=== PATIENT | female | born 1960 | race Caucasian/White ===

== ENCOUNTER → 2018-02-20 07:30 | Outpatient (CLI) | payer OTHER, SELFPAY ==
[2018-02-20 08:22] LABS: Absolute Lymphocyte Count 1.59 X10^3/ul (0.83-4.51); Absolute Neutrophil Count 1.8 X10^3/uL (2.0-7.7); Basophil# 0.04 X10^3/uL; Eosinophil# 0.07 X10^3/uL; Eosinophils% 1.8 % (0-5); Hematocrit 39.1 % (37-47); Hemoglobin 12.4 g/dl (12.0-15.0); Lymphocyte # 1.59 X10^3/ul (4.0); Lymphocyte % 40.2 % (19-41); Mean Corp Hgb Conc 31.7 g/gl (32-36); Mean Corpuscular Hgb 30.8 pg (27.0-32.0); Mean Platelet Vol. 11.2 fl (6.2-12.0); Monocyte% 12.6 % (0-10); Neutrophil # 1.75 X10^3/uL (2.7-7.7); Neutrophil % 44.1 % (47-70); Platelet Count 210 K/mm3 (150-450); RBC Distribution Width CV 13.3 % (11.6-14.6); RBC Distribution Width SD 46.5 fl (35.1-43.9); Red Blood Count 4.03 M/mm3 (4.2-5.4)
[2018-02-20 08:29] LABS: POSITIVE COUNT NO; POSITIVE DIFFERENTIAL NO; POSITIVE MORPHOLOGY NO
[2018-02-20 08:34] LABS: Color, Urine Yellow (Yellow); Glucose, Dipstick Normal (Normal); Ketone-Dipstick Negative (Negative); Leukocyte Esterase-Dipstick Negative /ul (Negative); Nitrite-Dipstick Negative (Negative); Occult Blood-Urine Negative /ul (Negative); Protein-Dipstick 15 mg/dl (Negative); Urine Bilirubin Dipstick Negative (Negative); Urine Clarity Clear (Clear); Urine Urobilinogen Normal (Normal)
[2018-02-20 09:14] LABS: Cholesterol 235 mg/dL (200); High Density Lipoprotein 110 mg/dL; Triglycerides 63 mg/dL; Very Low Density Lipoprotein 13 mg/dL (5-40)
== END ==
PROVIDERS: Family Provider Family Medicine; PCP Family Medicine; Visit Provider Family Medicine
DX: Z00.00 Encounter for general adult medical examination without abnormal findings (principal); R07.9 Chest pain, unspecified; Z13.89 Encounter for screening for other disorder
CPT/HCPCS: 36415; 80061; 81002; 85025

== ENCOUNTER → 2018-05-18 13:48 | Outpatient (CLI) | payer OTHER, SELFPAY ==
--- NOTE | 2018-05-18 13:51 | VDLE_ITS ---
Reason For Study: LEG PAIN AND SWELLING RIGHT LEFT CFV is compressible, spontaneous, phasic, CFV is compressible, spontaneous, phasic, competent and demonstrates normal competent, and demonstrates normal augmentation. augmentation. FV is compressible, spontaneous, phasic, FV is compressible, spontaneous, phasic, competent and demonstrates normal competent and demonstrates normal augmentation. augmentation. POP V is compressible, spontaneous, phasic, POP V is compressible, spontaneous, phasic, competent and demonstrates normal competent and demonstrates normal augmentation. augmentation. T/P Trunk is compressible. T/P Trunk is compressible. PTV is compressible. PTV is compressible. RT PerV is compressible. LT PerV is compressible. SFJ is INCOMPETENT with reflux greater SFJ is competent than .5 sec GSV is INCOMPETENT with reflux greater GSV is INCOMPETENT with reflux greater than .5 sec and diameter of .29 x .29 cm than .5 sec and diameter of .36 x .36 cm SSV is INCOMPETEDNT with reflux greater SSV is INCOMPETENT with reflux greater than .5 sec and diameter of .40 x .40 cm. than .5 sec and diameter of .60 x .65 cm. Procedure Exam performed in department. <> Interpretation Summary 1. Bilateral no DVT. 2. RightGSV 3.6mm and reflux and LSV 6.5mm and relfux 3. Left GSV 3mm and relfux and LSV 4mm and reflux. Ordering Physician: Tommy Liu Referring Physician: Tommy Liu Performed By: Carolina Solano RVT
== END ==
PROVIDERS: Family Provider Family Medicine; PCP Family Medicine; Referring Provider Surgery Vascular Surgery; Visit Provider Surgery Vascular Surgery
DX: I83.93 Asymptomatic varicose veins of bilateral lower extremities (principal); I87.2 Venous insufficiency (chronic) (peripheral); M79.89 Other specified soft tissue disorders; M79.609 Pain in unspecified limb
CPT/HCPCS: 93970

== ENCOUNTER → 2018-10-07 08:46 | Outpatient (CLI) | payer OTHER, SELFPAY ==
--- NOTE | 2018-10-07 08:49 | VDLE_ITS ---
Reason For Study: S/P LLEA Procedure LEFT Exam performed in department. GSV is normal. CFV is compressible, spontaneous, phasic, competent, and demonstrates normal augmentation. FV is compressible, spontaneous, phasic, competent and demonstrates normal augmentation. POP V is compressible, spontaneous, phasic, competent and demonstrates normal augmentation. T/P Trunk is compressible. PTV is compressible. LT PerV is compressible. Left SSV starting just distal to T/P Trunk is noncompressible extending throughout vessel to just above ankle. Findings consistent with recent SSV ablation. Interpretation Summary 1. Left leg no dvt 2. Successfule left lsv evlt. Ordering Physician: Tommy Liu Referring Physician: Tommy Liu Performed By: Madison Rubi, TALYA, RVT
== END ==
PROVIDERS: Family Provider Family Medicine; PCP Family Medicine; Referring Provider Surgery Vascular Surgery; Visit Provider Surgery Vascular Surgery
DX: I83.93 Asymptomatic varicose veins of bilateral lower extremities (principal); I87.2 Venous insufficiency (chronic) (peripheral); M79.89 Other specified soft tissue disorders; M79.609 Pain in unspecified limb; I34.1 Nonrheumatic mitral (valve) prolapse; Z87.891 Personal history of nicotine dependence
CPT/HCPCS: 93971

== ENCOUNTER 2019-07-23 10:00 | Outpatient (RCR) | payer OTHER, SELFPAY ==
--- NOTE | 2019-06-15 17:06 | HP.PTEVAL ---
Patient's Visit Information MELVI MALAVE is a 59 year old F referred to Physical Therapy by Ac Rice MD with a diagnosis of L shoulder pain. Date of Evaluation: 06/15/19 Physical Therapist: Augustine Dumas PT, ATC - Visit Plan Frequency: 2x /Week Duration: 2-4 Weeks Plan: L shoulder strengthening (rotator cuff), scap stab ex's, UBE, and HEP - Subjective Findings: Pt reports her L shoulder has been sore for 1 month. 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 Pt reports she is very active and her job is very active, and notes she has a hard time performing some of her tasks because of pain. Pt reports reaching overhead and pulling something towards her is what causes her the most pain. Pt is R hand dominant. Pt reports sleep difficulty secondary to pain. Pt reports no tingling or numbness in L UE. Pt reports most of her pain is located along the distributtion of the supraspinatus. 7/10 pain at rest, 9/10 pain at worst. Pt has had no diagnostic tests at this time. - Pain L shoudler Pain Intensity (Out of 10): 7 Pain Intensity Range: 9 - Objective Neuro: B UE sensation is WNL to lgiht touch. B bicepital reflex= 2/3. Palpation: Pt is sore in upper trap and supraspinatus regions. No obvious deformity present at this time. ROM: R shoulder flex= 180, abd= 160, ER= 90, IR WNL; L shoulder flex= 110, abd= 110, ER= 55, IR minimally limited. MMT: L shoulder flex= 4/5, abd= 5/5, ER= 4-/5, IR 4-/5. R shoulder 5/5 throughout. Special tests: pos empty can test - Goals Goal 1:: Decrease L shoulder pain x 50% to aid with sleep Goal Time Frame: 2-4 Weeks Goal 2:: Increase L shoulder strength x 1 grade to aid with IADL's Goal Time Frame: 2-4 Weeks Goal 3:: Increase L shoulder flex and abd ROM x 20 degrees to aid with overhead lifting Goal Time Frame: 2-4 Weeks Goal 4:: I with HEP Goal Time Frame: 2-4 Weeks - Rehabilitation Potential Physical Therapy Diagnosis: L shoulder pain, limited ROM, and weakness secondary to L shoulder rot cuff syndrome Rehabilitation Potential: Good - Anticipated Interventions Patient/Client Instruction: Educate patient on: Condition, Plan of Care For the Purpose of:: To improve self management Therapeutic Exercise to Include: Strength training, Endurance training, Flexibilty training, Passive ROM, Active ROM, Scapular Strength/Stabilization For the Purpose of:: To decrease pain, To increase ROM, To improve muscle performance and motor function Cryotherapy (ice pack, ice massage): Yes For the Purpose of:: To decrease pain Thank you for the opportunity to evaluate your patient. For Medicare and Medicare HMO plans, please review the plan of care and approve it. It will need to be FAXED BACK to us at [phone] for Medicare purposes. For Medicare only, by signing this I certify the plan of care. Please let me know if there are questions or concerns regarding this plan of care. Physician Signature: Date:
--- NOTE | 2019-10-06 12:28 | HP.PT.NRP ---
MELVI MALAVE was seen in my office for initial evaluation on 06/15/19. The following Plan of Care was established for this patient: Initial Frequency: 2x /Week Initial Duration: 2-4 Weeks Patient/Client Instruction: Educate patient on: Condition, Plan of Care For the Purpose of:: To improve self management Therapeutic Exercise to Include: Strength training, Endurance training, Flexibilty training, Passive ROM, Active ROM, Scapular Strength/Stabilization For the Purpose of:: To decrease pain, To increase ROM, To improve muscle performance and motor function Cryotherapy (ice pack, ice massage): Yes For the Purpose of:: To decrease pain This patient was last seen in our office . Pertinent comments regarding their Physical therapy will appear below: Pt was treated for 9 PT visits for L shoulder pain through the date of 07/23/2019. Pt has not returned through todays date and is discontinued at this time At this point I will be discontinuing this patient from physical therapy. I would be happy to see this patient again in the future if found appropriate by the physician. Thank you! Augustine Dumas, PT, ATC
== END 2019-07-23 19:00 | disposition home or self-care (01) ==
LOC: PT 10:00
PROVIDERS: Family Provider Family Medicine; PCP Family Medicine; Referring Provider Family Medicine; Visit Provider Family Medicine
DX: M25.512 Pain in left shoulder (principal); M25.561 Pain in right knee
CPT/HCPCS: 97110; 97161; 97530

== ENCOUNTER → 2021-03-30 13:16 | Outpatient (CLI) | payer OTHER, SELFPAY ==
--- NOTE | 2021-03-30 13:22 | CT_ITS ---
STUDY: CT PELVIS WITH CONTRAST REASON FOR EXAM: Female, 60 years old. Lower back pain. RADIATION DOSAGE (If Supplied By Facility): CTDIvol = ( 27.80 ) mGy, DLP = ( 975.55 ) mGycm TECHNIQUE: Transaxial imaging of the pelvis was performed without oral contrast. 100 CC ISOVUE 370 was administered intravenously. Individualized dose optimization techniques were used for this CT. COMPARISON: None. FINDINGS: Normal urinary bladder. The patient is status post hysterectomy. Normal visualized small intestine. Normal visualized colon. There is no pelvic fluid. There is no pelvic lymphadenopathy or mass lesion. Normal visualized pelvic arteries. Normal abdominal wall. There are mild degenerative changes of the visualized lumbar spine. CT/Pelvis WITH IV Contrast IMPRESSION: Mild degree of degenerative changes of the lumbar spine. Electronically Signed: Kenyon Donald MD at 14:32 EDT , Service support ,
[2021-03-30 14:11] LABS: CREATININE FINGERSTICK 0.8 mg/dL (0.55-1.02); EGFR FINGERSTICK > 60.0000 mL/min (>60)
== END ==
PROVIDERS: PCP Family Medicine; Referring Provider Family Medicine; Visit Provider Family Medicine
DX: R10.2 Pelvic and perineal pain (principal)
CPT/HCPCS: 72193; Q9967

== ENCOUNTER 2021-04-20 13:00 | Outpatient (RCR) | payer OTHER, SELFPAY ==
--- NOTE | 2021-03-16 13:30 | HP.PTEVAL ---
Patient's Visit Information MELVI MALAVE is a 60 year old F referred to Physical Therapy by Dr. Ac Rice MD with a diagnosis of LBP and pelvic pain. Date of Evaluation: 03/16/21 Physical Therapist: JEANNETTE Bernstein - Visit Plan Frequency: 2x /Week Duration: 6 Weeks Plan: 2X/ week for 6 weeks for neutral spine core stability, it band stretches, piriformis stretches, LE hip strengthening with HEP. HEP: Supine piriformis stretch and IT band stretch, PT and PT with small range leg lift - Subjective About 1 month ago pt feel down basement stairs. Her tailbone was bad and a couple weeks later she started with painful LBP and the fw motion putting weight on foot and could not take a full stride. She is going to have a CATSCAN for he S1 joint. She has a lot of anti inflamm meds. She can bend and it is the straight fw walking. She was told that her x-rays shows that there is an abnormality with the S1 and she needs to have a Catscan. Pt points that her pain is in her L SI area and buttock. Sometimes she can feel it passed her buttock but it is not the jamming type pain with walking. Her pain is worse in the morning. She stands at work and is ok but it is advancing her L leg forward etc. She has no Nubness and no tingling. - Pain L sided back pain Pain Intensity (Out of 10): 3 Comment: 01/27 with movement - Objective Gait: walks with short guarded stride and slow kaitlynn. Trunk AROM: flexion 100%, ext 50%, SB B 75%, Rot B 75%. LE MMT: B hip flex R 4-/5 (increase in pain on the L side of LB) and L 4-/5, B knee ext 4/5, B knee flex 4/5, R hip ext 4-/5 and L 3+/5 with in crease pain on the L side of Spine, R hip abd 4/5 and L 4-/5. Pt is able to stand on L and R and SLB X 30 sec without increase pain. Tight piriformis on with pain on the L and Tight L IT band. Palpation: tender over the L pififormis muscle belly. Instructed pt in how to sit with a towel lumbar roll - Balance/Special Test Scores Oswestry Low Back Score: 14 - Goals Goal 1:: I HEP Goal Time Frame: 4-6 Weeks Goal 2:: Be able to walk with normal stride length without pain and antalgic gait Goal Time Frame: 4-6 Weeks Goal 3:: Decrease L leg pain with work and ADL's Goal Time Frame: 4-6 Weeks Goal 4:: Increase core stability and LE strength (at time of eval: LE MMT: B hip flex R 4-/5 (increase in pain on the L side of LB) and L 4-/5, B knee ext 4/5, B knee flex 4/5, R hip ext 4-/5 and L 3+/5 with in crease pain on the L side of Spine, R hip abd 4/5 and L 4-/5). Goal Time Frame: 6-8 Weeks - Rehabilitation Potential Rehabilitation Potential: Good - Anticipated Interventions Patient/Client Instruction: Educate patient on: Condition, Plan of Care For the Purpose of:: To decrease pain, To increase ROM, To improve nutrient delivery to tissue, To improve muscle performance and motor function, To improve ability to perform ADL's, To increase tolerance to activity/condition/position, To decrease level of supervision to perform tasks, To improve ability of physical actions for home/community/work/leisure, To improve gait and locomotor functions, To improve health of tissue, To decrease soft tissue restriction, To increase flexibility/ROM Therapeutic Exercise to Include: Strength training, Postural training, Flexibilty training, Gait and locomotor training, Neuromotor development, Passive ROM, Active ROM, Dynamic Lumbar Stabilization For the Purpose of:: To decrease pain, To increase ROM, To improve nutrient delivery to tissue, To improve muscle performance and motor function, To improve ability to perform ADL's, To increase tolerance to activity/condition/position, To improve performance and independence with ADL's, To decrease level of supervision to perform tasks, To improve ability of physical actions for home/community/work/leisure, To improve gait and locomotor functions, To improve health of tissue, To decrease soft tissue restriction, To increase flexibility/ROM Functional Training to Include: Gait training For the Purpose of:: To improve gait and locomotor functions, To improve safety with gait Manual Therapy Techniques to Include: Mobilization, Passive ROM, Functional dry needling, Soft tissue mobilization For the Purpose of:: To decrease pain, To increase ROM, To improve nutrient delivery to tissue, To improve muscle performance and motor function, To improve ability to perform ADL's Thank you for the opportunity to evaluate your patient. For Medicare and Medicare HMO plans, please review the plan of care and approve it. It will need to be FAXED BACK to us at [phone] for Medicare purposes. For Medicare only, by signing this I certify the plan of care. Please let me know if there are questions or concerns regarding this plan of care. Physician Signature: Date:
--- NOTE | 2021-04-20 13:32 | HP.PTDCSUM ---
It has been my pleasure to treat MELVI MALAVE referred by Dr. Ac Rice MD, with the diagnosis of LBP and pelvic pain for a total of 9 visit(s). Discharge Date: 04/20/21 Please see the following information for a summary of their discharge status. Subjective: Pt reports that she feel that she has enough exercises that she will continue L sided back pain Pain Intensity (Out of 10): 1 % Improvement: 85 Objective/Function: LE MMT: B hip flex, abd 4/5 and hip ext 4/5. Pt walks with normal gait pattern Goal 1:: I HEP Goal Progress: Goal Met Goal 2:: Be able to walk with normal stride length without pain and antalgic gait Goal 3:: Decrease L leg pain with work and ADL's Goal Progress: Goal Met Goal 4:: Increase core stability and LE strength (at time of eval: LE MMT: B hip flex R 4-/5 (increase in pain on the L side of LB) and L 4-/5, B knee ext 4/5, B knee flex 4/5, R hip ext 4-/5 and L 3+/5 with in crease pain on the L side of Spine, R hip abd 4/5 and L 4-/5). Plan: DC PT to HEP Discharge Comments: DC PT to [facility] If there are questions or concerns regarding this patient's physical therapy, please feel free to call me at [phone]. Thank you for the referral of this patient. Sincerely, Enriqueta Easley, MPT Balance/Gait/Functional tests - Balance/Special Test Scores Oswestry Low Back Score: 1
== END 2021-04-20 19:00 | disposition home or self-care (01) ==
LOC: PT 13:00
PROVIDERS: PCP Family Medicine; Referring Provider Family Medicine; Visit Provider Family Medicine
DX: M54.5 Low back pain (principal); R10.2 Pelvic and perineal pain
CPT/HCPCS: 97110; 97161; 97530

== ENCOUNTER → 2024-08-18 | Outpatient (CLI) | payer MEDICARE, BC, SELFPAY ==
[2024-08-18 09:48] LABS: Anion Gap 7 (5-15); BUN 13 mg/dL (7-18); BUN/Creat Ratio 15.9 RATIO (10-20); Calcium,Total 8.9 mg/dL (8.5-10.1); Chloride 100 mmol/L (98-107); Creatinine, Serum 0.82 mg/dL (0.55-1.02); EST Glomerular Filtration Rate 75 mL/min (>60); Est Glom Filt Rate - Afr Amer 90 mL/min (>60); Glucose 96 mg/dL (74-106); Potassium 4.3 mmol/L (3.5-5.1); Sodium Level 136 mmol/L (136-145)
== END | disposition home or self-care (01) ==
LOC: LAB 08:40
PROVIDERS: PCP Family Medicine; Referring Provider Internal Medicine Cardiovascular Disease; Visit Provider Internal Medicine Cardiovascular Disease
DX: I10 Essential (primary) hypertension (principal)
CPT/HCPCS: 36415; 80048

== ENCOUNTER 2024-09-04 11:57 | Emergency (ER) | payer MEDICARE, BC, SELFPAY ==
[2024-09-04 11:58] VITALS: BP 123/64; PULSE 73; RESP 16; TEMP 36.9; O2SAT 99; BMI 28.4
--- NOTE | 2024-09-04 12:10 | VDLE_ITS ---
Reason For Study Reason For Study: Pain RLE RIGHT LEFT GSV is normal. CFV is compressible, spontaneous, phasic, competent, CFV is compressible, spontaneous, phasic, competent and demonstrates normal augmentation. and demonstrates normal augmentation. FV is compressible, spontaneous, phasic, competent and demonstrates normal augmentation. T/P Trunk is compressible. PTV is compressible. RT PerV is compressible. Rt PopV is partially compressible consistent with acute DVT; thrombus extends into the Popliteal V from the Rt SSV Rt SoleusV is DILATED and NON COMPRESSIBLE consistent with acute DVT Rt SSV is DILATED and NON COMPRESSIBLE consistent with acute SVT. VL/Venous Duplex US, Unilateral Interpretation Summary Acute deep vein thrombosis noted in the right popliteal vein, soleus vein. Acute superficial vein thrombosis noted in the right small saphenous vein Ordering Physician: Les Coleman Referring Physician: Ac Rice Performed By: Morena Cramer RDCS, RVT
--- NOTE | 2024-09-04 12:11 | EX.ED.DYSGE1 ---
HPI <MEGHA Angel - Last Filed: 09/04/24 13:05> History of Present Illness Chief Complaint: Lower Extremity Injury Narrative Narrative: Patient is a 64-year-old female with history of hypertension, does have history of varicose veins with some vein stripping presenting to the [facility] apartment with 3 days of pain to the right calf. Patient states she noticed some swelling, some pain on palpation. She is leaving for vacation tomorrow and she is concerned she might have a blood clot. She was brought over by urgent care. Patient denies any recent surgery, recent travel, or history of blood clots in the legs or lungs. PFS <MEGHA Angel - Last Filed: 09/04/24 13:05> [facility] Medical History Hypertension Chest pain Mitral valve prolapse Leiomyoma of uterus Excessive or frequent menstruation Home Medications ?Medication ?Instructions ?Recorded ?Last Taken ?Type lisinopril 20 mg tablet 20 mg PO QDAY #90 tabs 07/29/24 Unknown Rx carvedilol 12.5 mg tablet 12.5 mg PO BID #180 tabs 08/18/24 Unknown Rx apixaban 5 mg (74 tabs) tablets in See Rx Instructions PO .COMPLEX 09/04/24 Unknown Rx a dose pack (Eliquis DVT-PE Treat #74 tabs 30D Start) Allergy/AdvReac Type Severity Reaction Status Date / Time Penicillins Allergy Hives Verified 09/04/24 12:00 Family History Mother Glaucoma Heart disease Father Hypertension Cancer Sister Breast cancer Tachycardia Surgical History History of total abdominal hysterectomy and bilateral salpingo-oophorectomy History of loop electrical excision procedure (LEEP) History of right knee surgery History of delivery Social History Smoking Status: Former smoker alcohol intake: current substance use type: does not use caffeine: Yes ROS <MEGHA Angel - Last Filed: 09/04/24 13:05> ROS ED ROS Narrative Constitutional: Negative for fever, chills, weight loss, weakness Eyes: Negative for vision loss, vision change, double vision ENT: Negative for any sore throat, ear pain, congestion Cardiovascular: Negative for any chest pain, tightness, palpitations Respiratory: Negative for any cough, sputum production, hemoptysis, dyspnea, dyspnea on exertion, orthopnea Gastrointestinal: Negative for any abdominal pain, nausea, vomiting, diarrhea, constipation, blood in stool, blood in vomit : Negative for any urinary frequency, dysuria, retention, blood in urine Muscle skeletal: Negative for any neck pain, back pain. Positive pain to the right calf Neurological: Negative for any headache, syncope, dizziness Skin: Negative for any rashes, itching, abrasions, lacerations Psychiatric: Negative for any depression, anxiety, stress, suicidal ideation, homicidal ideation Hematologic: Negative for any excessive bruising, easy bleeding EXAM <MEGHA Angel - Last Filed: 09/04/24 13:05> Physical Exam Narrative Exam Narrative: Vital signs reviewed. HEET: Head normocephalic atraumatic, TMs clear bilaterally. Posterior pharynx is clear, moist mucous membranes. Nares clear bilaterally. Neck: Supple with no lymphadenopathy or tenderness. No signs of meningismus. Cardiac: Regular rate and rhythm no murmurs gallops or rubs, equal peripheral pulses bilaterally. Respiratory: Lungs clear to auscultation bilaterally. No chest tenderness. Abdomen: Soft, nontender, nondistended. No abdominal bruit or pulsatile masses. No hepatosplenomegaly Extremities: Patient does have slight edema to the right calf, mostly on the medial aspect. There is a slight area redness, there is a lump there, +2 pedal pulse. No significant pain on palpation. Neuro: Cranial nerves II through XII intact, no focal neurological deficits. Skin: Clean dry and intact with no rash, purpura, petechiae, vesicles or pustules. Backs/flank: No CVA tenderness, no midline spinal tenderness, no deformity. Psych: Normal mood and affect. No SI, HI or acute psychosis. Const Vital Signs: 09/04/24 11:58 Temperature 98.4 F Temperature Source Oral Pulse Rate 73 Respiratory Rate 16 Blood Pressure 123/64 H Blood Pressure Mean 83 Pulse Ox 99 Oxygen Delivery Method Room Air <Dr. Ena Glynn DO - Last Filed: 09/04/24 12:52> Physical Exam Const Vital Signs: 09/04/24 11:58 Temperature 98.4 F Temperature Source Oral Pulse Rate 73 Respiratory Rate 16 Blood Pressure 123/64 H Blood Pressure Mean 83 Pulse Ox 99 Oxygen Delivery Method Room Air [facility] <MEGHA Angel - Last Filed: 09/04/24 13:05> [facility] Treatment and Re-Evaluation :: Differential diagnosis includes however is not limited to: DVT, superficial thrombophlebitis, muscle strain, abscess, varicose vein Patient appears generally well, vital signs are stable, patient is nontoxic-appearing. Presenting to the emergency department with complaints of pain to the right calf for the last 3 days. Venous duplex will be ordered. Venous duplex was positive for DVT of the popliteal vein as well as the psoas vein on the right. We will reach out to vascular surgery. Patient likely started on anticoagulation with Eliquis. Patient restarted on Eliquis. We did discuss the patient's lifestyle with the medication of a blood thinner. She verbally understands. She will follow-up closely with vascular. She instructed return for any chest pain, shortness of breath. <Dr. Ena Glynn DO - Last Filed: 09/04/24 12:52> [facility] Narrative Medical decision making narrative: I have personally performed a face to face assessment of the patient and have reviewed the NEELIMA Note. I performed a substantive portion of the visit including all aspects of the following. My bajwa findings include: History is patient presents with 2-day history of swelling and discomfort to the right calf. She has history of varicose veins and history of phlebitis. No history of DVT. She denies recent travel or surgery. She is leaving for a trip to [place] starting tomorrow and wanted to make sure she did not have a DVT. She denies any chest pain or shortness of breath. She denies injury or trauma to her leg. Exam is HEENT-PERRLA, EOMI. Cranial nerves II through XII grossly intact. TMs clear. Mucous membranes moist. No adenopathy. Cardiovascular-regular rate and rhythm without murmur or ectopy Lungs-clear to auscultation, chest wall stable without crepitus or subcu emphysema Abdomen-normoactive bowel sounds, soft, nontender, no rebound or rigidity, no peritoneal signs. Extremities-intact ?4, normal range of motion, normal pulses, atraumatic. Right calf-posterior medial section of the calf there is a area of some induration in the course of venous distribution that slightly tender to palpation. No significant erythema noted. Patient neurovascular intact distally. She does have a positive Homans' sign. Medical Decison Making we will obtain a venous Doppler study to rule out DVT of the right leg. Venous Doppler studies obtained positive for DVT of the popliteal vein as well as the soleus vein on the right. Patient also with evidence for thrombophlebitis superficial. Will attempt to contact vascular surgeon Dr. Liu whom patient has seen in the past for her varicose veins. Patient will likely require anticoagulation with Eliquis. She is planning on traveling starting tomorrow and will be on a snowmobile. We had discussion about possible bleeding issues and this especially if she should have any type of trauma. She has not had any problems with bleeding from her bowel or urine. Other additions or changes: None Discharge Plan Triage Chief Complaint: Lower Extremity Injury ED Midlevel Provider: Les Coleman ED Provider: Ena Glynn Dx/Rx/DC Orders Clinical Impression: DVT (deep venous thrombosis) Instructions: DVT Complications, DVT Dc, ED Deep Vein Thrombosis (DVT) Prescriptions: New Eliquis DVT-PE Treat 30D Start 5 mg (74 tabs) tablets,dose pack See Rx Instructions .ROUTE .COMPLEX Qty: 74 0RF Rx Instructions: orally per package directions No Action lisinopril 20 mg tablet 20 mg PO QDAY Qty: 90 3RF carvedilol 12.5 mg tablet 12.5 mg PO BID Qty: 180 3RF Rx Instructions: must administer with a meal/food Primary Care Provider: Ac Rice Referrals: Ac Rice MD [Primary Care Provider] - Activity Restrictions/Additional Instructions: You are going to start Eliquis. It is 10 mg twice a day for the first 7 days. Then 5 mg twice a day thereon after. You need to follow-up with vascular. If you have chest pain, shortness of breath, passing out episodes you need to return to the emergency department. You are on a significant blood thinner, if you strike your head, body, you do have the ability of bleeding. Please return for any worsening symptoms. Print Language: Ivorian Disposition Disposition: Home, Self Care
[2024-09-04] MEDS: APIXABAN 5 MG TABLET 10 MG PO (13:12)
== END 2024-09-04 13:16 | disposition home or self-care (01) ==
PROVIDERS: Emergency Provider Emergency Medicine; PCP Family Medicine; Visit Provider Emergency Medicine
DX: I82.431 Acute embolism and thrombosis of right popliteal vein (principal); I82.461 Acute embolism and thrombosis of right calf muscular vein; I10 Essential (primary) hypertension; Z79.899 Other long term (current) drug therapy; Z87.891 Personal history of nicotine dependence
CPT/HCPCS: 93971; 99282

== ENCOUNTER → 2024-11-03 | Outpatient (CLI) | payer MEDICARE, BC, SELFPAY ==
--- NOTE | 2024-11-03 14:33 | VDLE_ITS ---
Reason For Study Reason For Study: HX RLE DVT RIGHT LEFT CFV is compressible, spontaneous, phasic, competent GSV is normal. and demonstrates normal augmentation. CFV is compressible, spontaneous, phasic, competent, FV is compressible, spontaneous, phasic, competent and demonstrates normal augmentation. and demonstrates normal augmentation. FV is compressible, spontaneous, phasic, competent POP V is compressible, spontaneous, phasic, competent and demonstrates normal augmentation. and demonstrates normal augmentation. POP V is compressible, spontaneous, phasic, competent T/P Trunk is compressible. and demonstrates normal augmentation. PTV is compressible. T/P Trunk is compressible. RT PerV is compressible. PTV is compressible. Unable to visualize GSV. Pt has HX ablation. LT PerV is compressible. Rt SSV is dilated and NONCOMPRESSIBLE 3.56cm distal from junction to prox calf. Mid and distal calf appear compressible. Procedure This is a venous duplex using B-mode, color flow and spectral Doppler. Exam performed in department. The exam was diagnostic. Compare to study performed 09/04/2024. VL/Venous Duplex US - Francisco Javier Extrem Interpretation Summary No DVT. Right GSv previous ablated. Right LSV occluded. Ordering Physician: Tommy Liu Referring Physician: Ac Rice Performed By: Ramin Barron RVT
== END | disposition home or self-care (01) ==
LOC: CVS 14:31
PROVIDERS: PCP Family Medicine; Referring Provider Surgery Vascular Surgery; Visit Provider Surgery Vascular Surgery
DX: I82.531 Chronic embolism and thrombosis of right popliteal vein (principal); M79.604 Pain in right leg; M79.89 Other specified soft tissue disorders; I83.93 Asymptomatic varicose veins of bilateral lower extremities; I10 Essential (primary) hypertension; I78.1 Nevus, non-neoplastic; I87.2 Venous insufficiency (chronic) (peripheral)
CPT/HCPCS: 93970